=== PATIENT | female | born 1975 | race Caucasian/White ===

== ENCOUNTER 2017-02-20 07:44 | Emergency (ER) | payer SELFPAY ==
[2017-02-20] MEDS ORDERED: KETOROLAC 60 MG/2 ML VIAL IM STA (08:17)
[2017-02-20] MEDS ORDERED: predniSONE 20 MG TABLET PO STA (08:17)
--- NOTE | 2017-02-20 08:26 | ED Physician Documentation ---
History of Present Illness - Stated complaint Stated Complaint: BACK PX - Chief complaint Chief Complaint: Back Pain - History obtained from History obtained from: Patient - Additonal information Additional information: Patient is a patient is a 41-year-old female with a history of occasional episodes of low back pain. 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 The pain is in the lumbar area and it does not radiate into her legs. It is worse with movement and better with rest. She denies any weakness in the legs numbness or tingling or anesthesia in the perineum. She has not had any problems defecating or urinating. She is was up all night because of the pain despite taking oral anti-inflammatories. Review of systems: For pertinent positive and negatives in the review of systems please see the history of present illness, otherwise all other systems have been reviewed and are negative. Dragon disclaimer: Parts of this medical record were created using voice recognition technology. Because of the inherent limitations of this system, occasional same sounding word substitutions do occur and persist despite proofreading. Please read the document for context. Review of Systems Musculoskeletal: reports: Back pain. 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, Hysterectomy HEENT: Other - Present Medications Home Medications: Ambulatory Orders Medication Instructions Recorded Confirmed Prednisone 40 mg PO DAILY #8 tablet 02/20/17 oxyCODONE/ACET 5/325 [Percocet 5 1 each PO Q4-6H PRN #16 tablet 02/20/17 mg/325 mg] - Allergies Allergies/Adverse Reactions: Allergies Allergy/AdvReac Type Severity Reaction Status Date / Time No Known Drug Allergies Allergy Verified 02/20/17 07:50 - Social History Does the pt smoke?: No Smoking Status: Never smoker Does the pt drink ETOH?: Yes Does the pt have substance abuse?: No - Immunizations Immunizations are current?: Yes PD ED PE NORMAL - Vitals Vital signs reviewed: Yes - General General: Alert and oriented X 3, No acute distress, Well developed/nourished - HEENT HEENT: Atraumatic - Neck Neck: Supple, no meningeal sign - Cardiac Cardiac: RRR - Respiratory Respiratory: No respiratory distress, Clear bilaterally - Abdomen Abdomen: Normal bowel sounds, Non tender, Non distended - Back Back: Other (Significantly increased back muscle tonicity more in the right paraspinal muscles than the left. No tenderness over the spinal processes the skin and soft tissue over the back looks normal. Neurologic examination of the leg show normal strength sensation and reflexes on exam straight leg raises positive at a little greater than 90 bilaterally) Results - Vitals Vitals: Vital Signs - 24 hr 02/20/17 07:49 Temperature 36.7 C Heart Rate 101 H Respiratory 14 Rate Blood Pressure 156/99 H O2 Saturation 100 Oxygen O2 Source Room air PD MEDICAL DECISION MAKING - ED course ED course: Patient presents with low back pain and strain. On examination she has increased tenderness to the back muscles. There are no warning signs or symptoms and examination shows intact neurologic system without weakness or loss of reflexes. She will be discharged home on prednisone and Percocet she will take anti-inflammatories in addition. Disposition: To home Clinical impression: 1. Low back pain and strain Departure - Departure Disposition: Home, Self Care Clinical Impression: Back pain Qualifiers: Back pain location: low back pain Chronicity: acute Back pain laterality: bilateral Sciatica presence: without sciatica Qualified Code(s): M54.5 - Low back pain Condition: Good Instructions: ED Exercises Lumbar Muscles, ED Spasm Back No Trauma Prescriptions: oxyCODONE/ACET 5/325 [Percocet 5 mg/325 mg] 1 each PO Q4-6H PRN #16 tablet PRN Reason: Pain Prednisone 40 mg PO DAILY #8 tablet
[2017-02-20] MEDS ORDERED: KETOROLAC 60 MG/2 ML VIAL ONE (08:27)
[2017-02-20] MEDS ORDERED: predniSONE 20 MG TABLET ONE (08:33)
[2017-02-20 08:45] VITALS: BP 147/98
== END 2017-02-20 08:44 | disposition home or self-care (01) ==
LOC: ED 07:44
DX: S39.012A Strain of muscle, fascia and tendon of lower back, initial encounter (principal); X58.XXXA Exposure to other specified factors, initial encounter; Y92.59 Other trade areas as the place of occurrence of the external cause; I10 Essential (primary) hypertension
CPT/HCPCS: 96372; 99282; 99283; J7512